=== PATIENT | female | born 1950 | race Caucasian/White ===

== ENCOUNTER 2017-04-25 09:53 | Emergency (ER) | payer MEDICARE, OTHER ==
--- NOTE | 2017-04-25 13:03 | ED ---
Skin Complaint - History of Current Complaint Chief Complaint: EDRashSkinAbscess Time Seen by Provider: 04/25/17 11:07 Stated Complaint: RASH ON FACE Pain Intensity: 0 - Allergy/Home Medications Allergies/Adverse Reactions: Allergies Allergy/AdvReac Type Severity Reaction Status Date / Time No Known Allergies Allergy Verified 04/25/17 11:11 Home Medications: Home Medications Eye Drops 1 drop LEFT EYE BID 04/25/17 [History Confirmed 04/25/17] PMH/Surg Hx/FS Hx/Imm Hx Musculoskeletal History: Denies: Hx Osteoporosis - Cancer History Hx Chemotherapy: No Hx Radiation Therapy: Yes Infectious Disease History: No Infectious Disease History: Denies: Traveled Outside the [place] in Last 30 Days - Social History Alcohol Use: None Substance Use Type: Reports: None Smoking Status (MU): Never Smoked Tobacco Physical Exam Vital Signs On Initial Exam: Initial Vitals Temp Pulse Resp BP Pulse Ox 98.3 F 76 18 135/95 98 04/25/17 10:28 04/25/17 10:28 04/25/17 10:28 04/25/17 10:28 04/25/17 10:28 Diagnostics - Vital Signs Vital Signs Temp Pulse Resp BP Pulse Ox 04/25/17 11:30 64 121/64 98 04/25/17 11:13 98.7 F 63 16 129/72 97 04/25/17 11:12 69 96 04/25/17 11:10 129/72 04/25/17 10:28 98.3 F 76 18 135/95 98 - Laboratory Lab Statement: Any lab studies that have been ordered have been reviewed, and results considered in the medical decision making process. Course/Dx - Differential Diagnoses - Skin Complaint Differential Diagnoses: Angioedema, Cellulitis, Contact Dermatitis, Local Allergic Reaction, Poison [place], Poison [place], Tinea - Diagnoses Provider Diagnoses: Cellulitis, face, Poison oak dermatitis Discharge - Discharge Plan Condition: Stable Disposition: HOME Patient Education Materials: Cellulitis (ED), Poison Rachel (ED) Additional Instructions: Take prescribed medication as directed. Follow up with primary care provider. You may also want to try applying Calamine lotion at bedtime onto rash. It is sold over the counter helps with inflammation and itching. Be sure to go to rn registry appointment on Sunday for followup/check up. If symptoms worsen or do not improve in the next 2-3 days please seek medical attention.
[2017-04-25 13:20] VITALS: BP 139/67
== END 2017-04-25 13:20 | disposition home or self-care (01) ==
LOC: ED 09:53
DX: L03.211 Cellulitis of face (principal); L25.5 Unspecified contact dermatitis due to plants, except food
CPT/HCPCS: 99282